=== PATIENT | female | born 1990 | race Caucasian/White ===

== ENCOUNTER 2016-11-22 18:54 | Inpatient (IN) ==
[2016-11-22] MEDS ORDERED: FLEXERIL PO ONE (19:06)
[2016-11-22] MEDS ORDERED: NORCO-10 PO ONE (19:06)
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
[2016-11-22] MEDS ORDERED: ZOFRAN ODT PO ONE (20:14)
[2016-11-22] MEDS ORDERED: MORPHINE IV PRN (21:17)
[2016-11-22] MEDS ORDERED: ZOFRAN IV PRN (21:17)
[2016-11-22] MEDS ORDERED: NS 1,000 ML IV ONE (21:17)
[2016-11-22 22:10] LABS: AGAP 10; ALBUMIN 4.6 g/dL (3.5-5.0); ALKALINE PHOSPHATASE 44 U/L (32-104); BUN 9 mg/dL (8-22); CALCIUM 9.2 mg/dL (8.8-10.2); CHLORIDE 105 mmol/L (98-107); COSMO 276; GOT 11 U/L (10-30); GPT 11 U/L (10-36); SODIUM 139 mmol/L (136-145); TCO2 24 mmol/L (25-35); TOTAL PROTEIN 7.3 g/dL (6.3-8.3)
[2016-11-23 01:18] LABS: MANUAL DIFF NEEDED? NO
[2016-11-23 01:29] LABS: BASO% 0.2 % (0.0-0.8); EOS# 0.04 X1000 (0.0-0.7); EOS% 0.4 % (0.0-10.0); HEMOGLOBIN 12.8 g/dL (12.0-16.0); IMM GRAN# 0.01 X1000 (0.0-0.04); IMM GRAN% 0.1 % (0.0-0.5); LYMPH# 1.84 X1000 (1.2-3.4); LYMPH% 20.7 % (20.5-51.1); MCH 31.2 PG (27-31); MCHC 35.6 g/dL (33-37); MCV 87.8 FL (81-99); MONO# 0.83 X1000 (0.11-0.59); MONO% 9.3 % (1.7-9.3); NEUT% 69.3 % (42.2-75.2); PLT 223 X1000 (130-400)
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
[2016-11-23] MEDS: MORPHINE IV PRN ×2 (11:26→15:56)
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
[2016-11-23 16:16] VITALS: BP 111/58
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
== END 2016-11-23 19:00 | disposition home or self-care (01) ==
LOC: P.ED 18:54 → P.MEDSURG 21:39
PROVIDERS: ATTEND Family Medicine